=== PATIENT | male | born 1980 | race Caucasian/White ===

== ENCOUNTER 2017-03-04 21:26 | Emergency (ER) | payer MEDICARE, OTHER ==
[~2017-03-04] VITALS: Ht 172.7 cm; Wt 75.0 kg
[2017-03-04] MEDS ORDERED: GABA-533 PO (21:32)
[2017-03-04] MEDS ORDERED: OMEG-12 PO (21:32)
[2017-03-04] MEDS ORDERED: MULT1CAP32 PO (21:32)
[2017-03-04] MEDS ORDERED: AMIT75 PO (21:32)
[2017-03-05] MEDS ORDERED: SODIUM CHLORIDE 0.9% 1,000 ML IV ONE (01:00)
[2017-03-05] MEDS ORDERED: LORazepam 2 MG/ML VIAL IVP ONE (01:15)
[2017-03-05 01:46] LABS: CALCIUM, TOTAL 9.1 mg/dL (8.8-10.5); CREATININE 1.47 mg/dL (0.60-1.30); POTASSIUM 4.1 mmol/L (3.5-5.1)
[2017-03-05 01:47] LABS: BASOPHILS % (AUTO) 0.5 % (0.0-2.0); EOSINOPHILS % (AUTO) 0 % (1.0-6.0); HEMATOCRIT 47.8 % (41-53); HEMOGLOBIN 16.5 g/dL (13.5-17.5); LYMPHOCYTES # (AUTO) 1.1 K/uL (1.0-4.8); LYMPHOCYTES % (AUTO) 10.5 % (22.0-44.0); MEAN CORPUSCULAR HEMOGLOBIN 32.5 pg (26.0-34.0); MEAN CORPUSCULAR HGB CONC 34.5 G/dL (31.0-37.0); MEAN CORPUSCULAR VOLUME 94 fL (80-100); MONOCYTES # (AUTO) 0.4 K/uL (0.1-1.0); MONOCYTES % (AUTO) 3.4 % (2.0-9.0); NEUTROPHILS # (AUTO) 9.1 K/uL (1.8-7.7); RED BLOOD CELL COUNT(AUTO) 5.07 MIL/uL (4.50-5.90)
[2017-03-05 01:50] LABS: NEUTROPHILS % (AUTO) 85.6 % (40.0-70.0); WHITE BLOOD COUNT (AUTO) 13.4 K/uL (4.5-11.0)
[2017-03-05 02:20] LABS: PLATELET COUNT (AUTO) 183 K/uL (150-450)
[2017-03-05 02:54] VITALS: BP 125/79
== END 2017-03-05 03:02 | disposition home or self-care (01) ==
LOC: EMS 21:30
DX: T40.1X1A Poisoning by heroin, accidental (unintentional), initial encounter (principal); F11.10 Opioid abuse, uncomplicated; F15.90 Other stimulant use, unspecified, uncomplicated; F17.210 Nicotine dependence, cigarettes, uncomplicated; Y92.89 Other specified places as the place of occurrence of the external cause
CPT/HCPCS: 36415; 80048; 85025; 96361; 96374; 99284; J2060; J7030